=== PATIENT | female | born 1970 | race Caucasian/White ===

== ENCOUNTER 2017-09-01 11:26 | Emergency (ER) | payer SELFPAY ==
[~2017-09-01] VITALS: Ht 152.4 cm; Wt 47.7 kg
--- NOTE | 2017-09-01 11:30 | NUR ---
PT CALLED TO TRIAGE. PT OUTSIDE ER LOBBY TALKING ON CELL PHONE.
[2017-09-01 11:35] VITALS: BP 100/66
--- NOTE | 2017-09-01 11:43 | NUR ---
PT TAKEN TO BED 6. REPORT GIVEN TO RISSA REID.
[2017-09-01] MEDS ORDERED: KETOROLAC 30 MG/ML VIAL IVP ONE (12:05)
[2017-09-01] MEDS ORDERED: NACL 0.9% 1,000 ML IV ONE (12:05)
[2017-09-01 12:36] LABS: BASOPHILS % (AUTO) 0.4 % (0.0-2.0); EOSINOPHILS # (AUTO) 0.1 K/uL (0-0.4); EOSINOPHILS % (AUTO) 0.9 % (0.0-4.0); HEMATOCRIT 31.4 % (36-48); HEMOGLOBIN 9.9 g/dL (12.0-16.0); LYMPHOCYTES # (AUTO) 0.9 K/uL (2.5-16.5); LYMPHOCYTES % (AUTO) 8.5 % (20.5-51.1); MEAN CORPUSCULAR HEMOGLOBIN 23 pg (27-31); MEAN CORPUSCULAR HGB CONC 32 g/dL (33-37); MEAN CORPUSCULAR VOLUME 72.9 fL (80-94); MONOCYTES # (AUTO) 1.1 K/uL (0.8-1.0); MONOCYTES % (AUTO) 10.5 % (1.7-9.3); NEUTROPHILS # (AUTO) 8.2 K/uL (1.8-7.7); NEUTROPHILS % (AUTO) 79.7 % (42.2-75.2); PLATELET COUNT (AUTO) 590 K/uL (140-450); RED CELL DISTRIBUTION WIDTH 16.8 % (11.6-13.7); WHITE BLOOD COUNT (AUTO) 10.3 K/uL (4.8-10.8)
[2017-09-01 12:42] LABS: APPEARANCE,URINE CLEAR (CLEAR); BILIRUBIN,URINE NEGATIVE (NEGATIVE); BLOOD, URINE 2+ (NEGATIVE); COLOR,URINE YELLOW (YELLOW); LEUKOCYTE ESTERASE ,URINE NEGATIVE (NEGATIVE); NITRITE, URINE NEGATIVE (NEGATIVE); PH,URINE 6.5 (5.0-9.0); UGLUCOSE NEGATIVE (NEGATIVE)
[2017-09-01 12:51] LABS: ALBUMIN 2.2 g/dL (3.4-5.0); ANION GAP 13.8 (8-16); CREATININE 0.7 mg/dL (0.6-1.3); POTASSIUM 3.8 mmol/L (3.5-5.1); TOTAL BILIRUBIN 0.4 mg/dL (0.0-1.0)
[2017-09-01 13:05] LABS: RBC,URINE 11-20 (MOD) /HPF (0-5); WBC,URINE 0-5 (RARE) /HPF (0-5)
[2017-09-01 15:45] VITALS: BP 97/63
--- NOTE | 2017-09-01 15:48 | NUR ---
Patient discharged with v/s stable. Written and verbal after care instructions given and explained. Patient alert, oriented and verbalized understanding of instructions. Ambulatory with steady gait. All questions addressed prior to discharge. ID band removed. Patient advised to follow up with PMD. Rx of flagyl and cipro given. Patient educated on indication of medication including possible reaction and side effects. Opportunity to ask questions provided and answered.
== END 2017-09-01 15:48 | disposition home or self-care (01) ==
LOC: MED 11:26
DX: K52.9 Noninfective gastroenteritis and colitis, unspecified (principal)
CPT/HCPCS: 36415; 80053; 81001; 81025; 82150; 83605; 83690; 85025; 87040; 96361; 96374; 99285; J1885

== ENCOUNTER 2019-03-26 00:31 | Emergency (ER) | payer SELFPAY ==
[~2019-03-26] VITALS: Ht 165.1 cm; Wt 56.7 kg
[2019-03-26 00:35] VITALS: BP 160/95
--- NOTE | 2019-03-26 00:38 | NUR ---
to lobby a/w bed ambulatory
--- NOTE | 2019-03-26 01:44 | NUR ---
48 YEAR OLD FEMALE COMPLAINS OF 8/10 RADIATING TO LEFT ARM CHEST PAIN ALONG WITH SHORTNESS OF BREATHE. PATIENT AOX4, BREATHING EVEN AND UNLABORED, SKIN WARM AND DRY. RR 13, SPO2 100%, BP 146/85, HR 78. PATIENT HAS SON AT BEDSIDE. BED IN LOWEST POSITION, LOCKED, BED RAIL UPX1. DR GAN NOTIFIED OF PT STATUS. PMH - DENIES MEDS - DENIES ALLERGIES - NKA
[2019-03-26] MEDS ORDERED: LISINOPRIL 20 MG TAB PO ONE (02:10)
--- NOTE | 2019-03-26 02:30 | NUR ---
PATIENT ALERT AND AWAKE, BREATHING EVEN AND UNLABORED
--- NOTE | 2019-03-26 04:07 | NUR ---
PATIENT ALERT AND AWAKE, BREATHING EVEN AND UNLABORED
[2019-03-26 04:20] VITALS: BP 128/77
--- NOTE | 2019-03-26 04:20 | NUR ---
Patient discharged with v/s stable. Written and verbal after care instructions given and explained. Patient alert, oriented and verbalized understanding of instructions. Ambulatory with steady gait. All questions addressed prior to discharge. ID band removed. Patient advised to follow up with PMD. Rx of LISINOPRIL WAS given. Patient educated on indication of medication including possible reaction and side effects. Opportunity to ask questions provided and answered. DR. GAN D/C PT
== END 2019-03-26 04:20 | disposition home or self-care (01) ==
LOC: MED 00:31
DX: I10 Essential (primary) hypertension (principal)
CPT/HCPCS: 93005; 99283